=== PATIENT | female | born 1985 | race Caucasian/White ===

== ENCOUNTER 2016-10-09 16:24 | Outpatient (CLI) | payer MEDICAID ==
[~2016-10-09] VITALS: Ht 152.4 cm; Wt 80.3 kg
[2016-10-09] MEDS ORDERED: BETAMET NA PHOS/AC(6 MG/ML) 5ML INJ IM ONE (16:45)
--- NOTE | 2016-10-09 18:27 | RADRPT ---
PROCEDURE: US OB biophysical profile. CLINICAL INDICATION: Contractions TECHNIQUE: Multiple sonographic images of the pelvis were obtained. The images were reviewed on a PACS workstation. COMPARISON: No prior studies are available for comparison. FINDINGS: Funneling is noted at the internal cervical os. The closed portion of the cervix measures 2.4 cm in length. There is a single viable intrauterine gestation. Cardiac activity is present with 166 beats per min kiana. There is a vertex presentation. The placenta is fundal. There is no evidence of placental abruption. There is a normal amount of amniotic fluid with an CHRISTIANO = 11.2 cm. Biophysical profile: movement 2/2 tone 2/2. breathing 2/2 CHRISTIANO 2/2 Total 01/12 RPTAT: AA . IMPRESSION: Normal biophysical profile. Funneling is noted at the internal cervical os with the closed portion of the cervix measuring 2.4 c m in length. Normal CHRISTIANO. Mildly elevated heart rate of 166 beats per minute. Cephalic presentation. Physician Mitul Date Time Electronically viewed and signed by Physician Mitul on 10/09/2016 18:26 RA/
[2016-10-09] MEDS ORDERED: NIFE10CA19 PO (19:54)
--- NOTE | 2016-10-09 20:26 | QN ---
Documentation Comment OB Triage- Laborist Pt is a 31yo at 30+6 presenting for 2nd dose of BMZ. Pt was seen at [facility] yesterday for contractions and received a dose of BMZ and was instructed to return here today to receive dose #2. Pt reports feeling minimal contractions , really only when fetus moves. Denies LOF or VB and reports normal FM. The patient was discussed with Dr. Ireland by criminal legal assistant and TVCL ordered VS BP 121/66 P 96 FHR: baseline 130s, mod primitivo, +10x10 accels, no decels [place]: acontractile PROCEDURE: US OB biophysical profile. CLINICAL INDICATION: Contractions TECHNIQUE: Multiple sonographic images of the pelvis were obtained. The images were reviewed on a PACS workstation. COMPARISON: No prior studies are available for comparison. FINDINGS: Funneling is noted at the internal cervical os. The closed portion of the cervix measures 2.4 cm in length. There is a single viable intrauterine gestation. Cardiac activity is present with 166 beats per minute. There is a vertex presentation. The placenta is fundal. There is no evidence of placental abruption. There is a normal amount of amniotic fluid with an CHRISTIANO = 11.2 cm. Biophysical profile: movement 2/2 tone 2/2. breathing 2/2 CHRISTIANO 2/2 Total 01/12 RPTAT: AA . IMPRESSION: Normal biophysical profile. Funneling is noted at the internal cervical os with the closed portion of the cervix measuring 2.4 cm in length. Normal CHRISTIANO. Mildly elevated heart rate of 166 beats per minute. Cephalic presentation. Assessment/Plan Reactive NST TVCL <2.5cm, pt asymptomatic Results of U/S discussed with Dr. Ireland by criminal legal assistant and discharge was ordered with Rx for Nifedipine 10mg PO q6H which was given to the patient. The patient will f/up with Dr. Ireland on Friday 10/13. Strict PTL, PPROM and FKC instructions were reviewed with the patient. Questions were answered to the patient's satisfaction. FADI ENRIQUEZ MD October 09, 2016 20:26
--- NOTE | 2016-10-09 21:41 | TRIAGE ---
OB Triage Datetime Report Generated by CPN: 10/09/2016 21:41 Datetime: 10/09/2016 19:41 Stage of : OB Triage Labor Evaluation Frequency: X1 Monitor Mode: External Duration (sec)2399: 40 Quality: Mild Pattern: Normal: <= 5 Contractions in 10 Minutes Resting Tone [place]: Relaxed Heart Rate FHR Baseline Rate: 135 Monitor Mode: External US FHR Baseline Changes: No Baseline Change Variability: Moderate 6-25 bpm Accelerations: 15X15 Decelerations: None Category: Category I Datetime: 10/09/2016 18:26 Labor Evaluation Frequency: 0 Monitor Mode: External Contraction Comments: DENIES FEELING ANY UC'S Heart Rate FHR Baseline Rate: 145 Monitor Mode: External US FHR Baseline Changes: No Baseline Change Variability: Moderate 6-25 bpm Accelerations: 15X15 Decelerations: None Category: Category I Pain Assessment Pain Presence: None/Denies Datetime: 10/09/2016 17:09 Labor Evaluation Frequency: 0 Monitor Mode: External Heart Rate FHR Baseline Rate: 140 Monitor Mode: External US FHR Baseline Changes: No Baseline Change Variability: Moderate 6-25 bpm Accelerations: 15X15 Decelerations: None Category: Category I Pain Assessment Pain Presence: None/Denies Datetime: 10/09/2016 16:49 Assessment Type: Triage Datetime: 10/09/2016 16:45 Stage of : OB Triage Labor Evaluation Frequency: 0 Monitor Mode: External Heart Rate FHR Baseline Rate: 150 Monitor Mode: External US FHR Baseline Changes: No Baseline Change Variability: Moderate 6-25 bpm Accelerations: 15X15 Decelerations: None Category: Category I Pain Assessment Pain Presence: None/Denies Datetime: 10/09/2016 16:44 EGA: 30.6 Datetime: 10/09/2016 16:25 Time of Arrival: 10/09/2016 16:25 Arrived By: Ambulatory Arrived From: Office Chief Complaint: 2ND DOSE OF BETA Movement: Present Contractions: Denies/Absent Rupture of Membranes: Denies Vaginal Bleeding: None Vaginal Discharge: Denies Recent Sexual Intercouse: Denies Abdominal Trauma: Not Applicable Patient Complaints: None Time Provider Notified: 10/09/2016 17:20 Provider Notified: TAHMINA Initial Plan: JULIA DUNNE BPP
[2016-10-10] MEDS ORDERED: NIFEdipine 10 MG CAP PO SCH
== END 2016-10-09 20:15 | disposition home or self-care (01) ==
LOC: OBT 16:24 → L-D 16:25 → OBT 20:15
PROVIDERS: ATTEND Obstetrics & Gynecology
DX: O62.9 Abnormality of forces of labor, unspecified (principal); Z3A.30 30 weeks gestation of pregnancy
CPT/HCPCS: 76817; 76818; 96372; J0702; Z7500; G0463

== ENCOUNTER 2016-10-29 11:36 | Inpatient (IN) | payer MEDICAID ==
[~2016-10-29] VITALS: Ht 152.4 cm; Wt 81.5 kg
[~2016-10-29 11:36] MED LIST: NIFE10CA19 PO
[2016-10-29 12:04] VITALS: BP 111/62; PULSE 97; RESP 18; Ht 152.4 cm; Wt 81.5 kg
[2016-10-29] MEDS ORDERED: PEN500 PO (12:04)
[2016-10-29] MEDS ORDERED: PRENAT PO (12:04)
[2016-10-29] MEDS ORDERED: FERR325T5 PO (12:04)
[2016-10-29] MEDS ORDERED: CALC600T11 PO (12:04)
[2016-10-29] MEDS ORDERED: NIFEdipine 10 MG CAP PO ONE (13:00)
[2016-10-29] MEDS ORDERED: LACTATED RINGER'S 1,000 ML IV* SCH (13:00)
[2016-10-29] MEDS ORDERED: TERBUTALINE 1 MG/ML INJ SC ONE (13:00)
--- NOTE | 2016-10-29 13:57 | RADRPT ---
PROCEDURE: CERVICAL LENGTH ULTRASOUND CLINICAL INDICATION: labor at 33 weeks gestational age. TECHNIQUE: Trans-vaginal imaging of the cervical canal was performed utilizing flores-scale imaging. Sagittal and transverse images were obtained. Trans-abdominal images were also obtained. The rukhsana ges were reviewed on a PACS workstation. COMPARISON: None. FINDINGS: There is a single live intrauterine . heart rate is 144 beats per minute. Position is cephalic and placenta is fundal grade II. There is no placenta previa. The cervix is closed with a length of 1.7 cm. IMPRESSION: 1. Cervical length is 1.7 cm. RPTAT: QQ .Niles Cerrato MD, MD Date Time Electronically viewed and signed by .Niles Cerrato MD, on 10/29/2016 13:57 .R/
[2016-10-29] MEDS ORDERED: MAGNESIUM SULFATE 4 GM/100 ML 100 ML IV ONE (15:00)
[2016-10-29] MEDS ORDERED: ACETAMINOPHEN 325 MG TAB PO PRN (15:00)
[2016-10-29] MEDS ORDERED: ONDANSETRON 4 MG INJ IV PRN (15:00)
[2016-10-29] MEDS: BETAMET NA PHOS/AC(6 MG/ML) 5ML INJ IM SCH (15:05)
--- NOTE | 2016-10-29 15:18 | HP ---
Date/Time of Note Date/Time of Note DATE: 10/29/16 TIME: 15:13 OB - History Hx of Present Last Menstrual Period: Mar 07, 2016 Estimated Due Date: Dec 12, 2016 : 2 Para: 1 Care: Good Care Ultrasounds: Normal mid trimester US Obstetrical Complications: Other ( labor ) Medical Complications: None Past Family/Social History * Past Medical, Surgical, Family and Obstetric Histories reviewed from chart. Blood Type: O+ Rubella: immune RPR/VDRL: Negative GBS Status: Unknown HBsAG: Negative OB Admission Exam Vital Signs Vital Signs Vital Signs Date Time Temp Pulse Resp B/P Pulse Ox O2 Delivery O2 Flow Rate FiO2 10/29/16 12:04 98.5 97 18 111/62 98 Room Air Physical Exam HEENT: WNL Heart: Rhythm Normal Lungs: Clear, Equal Abdomen: WNL Extremities: Normal Reflexes: Normal Cervical Dilatation: 1cm Effacement: 50% Station: -3 Membranes: Intact Heart Rate: 140's Accelerations: Accelerations Present Decelerations: No Decelerations Varibility: Moderate Contractions on Admission: < 5 Minutes Apart Date/Time Contractions Began: 10/28/20161999 Frequency of Contractions: Q4-7 Duration: >60 seconds Intensity: Moderate OB Assessment/Plan Reason for admission: labor Other Assessment: 33.5 weeks gestation Other plan: start on magnesium sulfate KRISHNA KAUR MD October 29, 2016 15:18
[2016-10-29] MEDS: MAGNESIUM SULFATE 20 GM/500 ML 500 ML IV SCH (15:35)
[2016-10-29] MEDS: LACTATED RINGER'S 1,000 ML IV SCH ×2 (17:22→23:37)
[2016-10-29] MEDS: CALCIUM CARBONATE 1.25 GM TAB PO SCH (18:07)
[2016-10-29] MEDS: PENICILLIN V K 250 MG TAB PO SCH (18:12)
[2016-10-29] MEDS: ACCU-CHEK XX SCH (20:05)
[2016-10-30] MEDS: PENICILLIN V K 250 MG TAB PO SCH ×4 (00:02→17:51)
[2016-10-30] MEDS: MAGNESIUM SULFATE 20 GM/500 ML 500 ML IV SCH ×3 (01:07→21:15)
[2016-10-30] MEDS: ACCU-CHEK XX SCH ×3 (08:01→14:01)
[2016-10-30] MEDS: MULTIVIT/MIN/FOLATE/IRON/PREN TAB PO SCH (08:53)
[2016-10-30] MEDS: CALCIUM CARBONATE 1.25 GM TAB PO SCH (08:54)
[2016-10-30] MEDS: FERROUS SULFATE (EC) 325 MG TAB PO SCH (08:54)
[2016-10-30] MEDS: LACTATED RINGER'S 1,000 ML IV SCH (12:17)
[2016-10-30] MEDS: BETAMET NA PHOS/AC(6 MG/ML) 5ML INJ IM SCH (14:50)
--- NOTE | 2016-10-30 17:22 | QN ---
Documentation Comment Progress Note: 31 y.o. A1 with an IUP at 33w 6d admitted with labor and a short cervix. The pt's cervix was 1.7cm 10/29. On 10/09 the cervix was 2.4 cm with funneling. She received her 1st steroid dose and will receive the next tonight. She is currently on magnesium.Pt had been on Procardia at home but lost the Rx and then started yris 10/28 PM so she came in. POBHx: C/S at 35 weeks for PTL- the baby went home with mom. PMHx: GDM- diet controlled. PSx: C/S only. All: latex. P: Pt is stable and in good spirits. A few contractions now. Will request a perinatology consult to develop a plan of care. Cont Magnesium for now. BRIT BURCIAGA MD October 30, 2016 17:22
[2016-10-31] MEDS: PENICILLIN V K 250 MG TAB PO SCH ×4 (00:02→18:43)
[2016-10-31] MEDS: LACTATED RINGER'S 1,000 ML IV SCH ×2 (01:01→13:51)
[2016-10-31] MEDS: MAGNESIUM SULFATE 20 GM/500 ML 500 ML IV SCH (06:15)
[2016-10-31] MEDS: ACCU-CHEK XX SCH ×4 (08:39→19:53)
[2016-10-31] MEDS: FERROUS SULFATE (EC) 325 MG TAB PO SCH (09:46)
[2016-10-31] MEDS: CALCIUM CARBONATE 1.25 GM TAB PO SCH (09:46)
[2016-10-31] MEDS: MULTIVIT/MIN/FOLATE/IRON/PREN TAB PO SCH (09:47)
[2016-10-31] MEDS ORDERED: NIFEdipine 10 MG CAP PO ONE (18:00)
--- NOTE | 2016-11-01 00:04 | QN ---
Documentation Comment Progress note 31 y.o. with an IUP at 33w 6d with PTL and a short cervix of 1.3 cm. Now s/p steroids x 2. On magnesium. Dr Parker saw the pt today and recommended the magnesium be stopped at 1800 and changed over to Procardia. Pt is not having any UC's and is feeling fine. BS's 125-143 which is fine as she received steroids. P: Continue care. BRIT BURCIAGA MD November 01, 2016 00:04
[2016-11-01] MEDS: NIFEdipine 10 MG CAP PO SCH ×4 (00:05→17:36)
[2016-11-01] MEDS: PENICILLIN V K 250 MG TAB PO SCH ×4 (00:08→17:36)
[2016-11-01] MEDS: LACTATED RINGER'S 1,000 ML IV SCH (02:27)
[2016-11-01] MEDS: ACCU-CHEK XX SCH ×3 (07:30→14:29)
[2016-11-01] MEDS: MULTIVIT/MIN/FOLATE/IRON/PREN TAB PO SCH (09:01)
[2016-11-01] MEDS: CALCIUM CARBONATE 1.25 GM TAB PO SCH (09:01)
[2016-11-01] MEDS: FERROUS SULFATE (EC) 325 MG TAB PO SCH (09:01)
--- NOTE | 2016-11-01 17:23 | DS ---
DATE OF ADMISSION: 10/29/2016 DATE OF DISCHARGE: DISCHARGE DIAGNOSES: 1. Intrauterine at 1/7 weeks. 2. labor, resolved. HISTORY AND HOSPITAL COURSE: The patient is a 31-year-old who presented at 33-1/2 weeks with contra ctions and short cervix. The patient was admitted, started on magnesium, betamethasone course. The patient was seen by the M and on the day of discharge, the patient is doing well. No uterine con tractions, leakage of fluid, good movement. On discharge, patient at 34 weeks and 1 day. Ex am within normal limits. Vital signs within normal limits. Patient discharged home in stable condition. ER precautions were given and patient is stable upon d ischarge. Patient sent home on nifedipine 20 q.6. The patient to follow up with Dr. Ireland in the next 2 to 3 days. Dictated By: DEBORAH AMIN MD /NTS Conf#: [id number] DID#: [id number]
== END 2016-11-01 18:03 | disposition home or self-care (01) | DRG 778 ==
LOC: L-D 11:36 → OBT 11:36 → L-D 14:48 → OBG 15:47
PROVIDERS: ADMIT Obstetrics & Gynecology; ATTEND Obstetrics & Gynecology
DX: O60.03 Preterm labor without delivery, third trimester (principal); O26.873 Cervical shortening, third trimester; Z3A.33 33 weeks gestation of pregnancy
CPT/HCPCS: 36415; 76817; 82962; 83735; 96372; G0463; J0702; J3105; J3475; J7120

== ENCOUNTER 2016-11-24 10:53 | Inpatient (IN) | payer MEDICAID ==
[~2016-11-24] VITALS: Ht 152.4 cm; Wt 85.8 kg
[2016-11-24] MEDS: LACTATED RINGER'S 1,000 ML IV SCH ×4 (10:15→22:11)
[~2016-11-24 10:53] MED LIST changes: +CALC600T11 PO; +FERR325T5 PO; -NIFE10CA19 PO; +PRENAT PO
[2016-11-24] MEDS ORDERED: PRO20 PO (12:00)
[2016-11-24 12:01] VITALS: BP 116/67; PULSE 90; RESP 18; Ht 152.4 cm; Wt 85.8 kg
[2016-11-24] MEDS ORDERED: OXYTOCIN 30 UNITS/LR 500 ML IV PRN ×2 (13:00→22:00)
[2016-11-24] MEDS ORDERED: OXYTOCIN 30 UNITS/LR 500 ML IV SCH (13:00)
[2016-11-24] MEDS ORDERED: METHYLERGONOVINE 0.2 MG INJ IM PRN ×2 (13:00→22:00)
[2016-11-24] MEDS ORDERED: MISOPROSTOL 200 MCG TAB PR PRN ×2 (13:00→22:00)
[2016-11-24] MEDS ORDERED: CARBOPROST 250 MCG INJ IM PRN ×2 (13:00→22:00)
[2016-11-24 13:10] LABS: ADD SCAN DIFF NO
[2016-11-24 13:11] LABS: BASOPHILS % 0.2 % (0.0-2.0); EOSINOPHILS # 0.1 10^3/ul (0.0-0.5); EOSINOPHILS % 0.7 % (0.0-7.0); HEMATOCRIT 32.6 % (37.0-47.0); HEMOGLOBIN 11.2 g/dl (12.0-16.0); LYMPHOCYTES # 2.1 10^3/ul (0.8-2.9); LYMPHOCYTES % 17.6 % (15.0-51.0); MEAN CORPUSCULAR HEMOGLOBIN 31.8 pg (29.0-33.0); MEAN CORPUSCULAR HGB CONC 34.4 g/dl (32.0-37.0); MEAN CORPUSCULAR VOLUME 92.6 fl (82.0-101.0); MEAN PLATELET VOLUME 12.4 fl (7.4-10.4); MONOCYTE # 0.9 10^3/ul (0.3-0.9); MONOCYTES % 7.4 % (0.0-11.0); NEUTROPHIL # 8.8 10^3/ul (1.6-7.5); NEUTROPHILS % 73.5 % (39.0-77.0); PLATELET COUNT 220 10^3/UL (140-415); RED BLOOD COUNT 3.52 10^6/ul (4.20-5.40); RED CELL DISTRIBUTION WIDTH 13.6 % (11.5-14.5)
[2016-11-24 13:16] LABS: INR 0.91; PROTIME 12.3 Sec (12.2-14.2)
[2016-11-24 13:17] LABS: PARTIAL THROMBOPLASTIN TIME 28.1 Sec (25.0-35.0)
--- NOTE | 2016-11-24 13:28 | NSTRPT ---
NST Information Datetime Report Generated by CPN: 11/24/2016 13:28 Datetime: 11/24/2016 08:34 NST Information EGA: 37.3 Test Number: 7 Time on Monitor: 11/24/2016 08:55 Time off Monitor: 11/24/2016 09:48 NST Duration (Min): 53 Reason for NST: Diabetes Mellitus; Low JESUS; Other Reason for NST Other: A1DM, Marginal Cord Insertion Test and Monitor Explained: Monitor Explained; Test Explained; Verbalized Understanding Pulse: 91 Resp: 18 SBP: 121 DBP: 79 Test Evaluation NST Interventions: Reposition Patient Patient States Movement: Present Contraction Frequency: 6-8, PT STATES MILD FHR Baseline : 155 Variability: Moderate 6-25bpm Accelerations: 15X15 Decelerations: Early; Variable FHR Category: Category II NST Results: Reactive Comments: To u/s CHRISTIANO 8.0 CM, CEPH, STRIP REVIEWED BY DR FIELDS, RECOMMENDING PT GO TO OB TRIAGE FOR EXTENDED MONITORING AND LABOR EVALUATION. 1020-Report to Dr Ireland, inc Dr Fields's recommendations, orders received. Report called to SCARLET Marquez, Triage. POC discussed with Pt, states understanding. 1045-Pt to triage, accomp by Shayla u/genet. Electronically Signed By E-Signature: with User ID: [id number], Addendum/Amendment: Patient with regular uterine contractions, some suspicious areas after contract ions, not repetitive. Recommend prolonged monitoring, possible delivery if decelerations persist or labor progresses Datetime: 11/17/2016 08:45 NST Information EGA: 36.3 NST Duration (Min): 32 Datetime: 11/13/2016 08:58 NST Information EGA: 35.6 NST Duration (Min): 31 Datetime: 11/10/2016 08:34 NST Information EGA: 35.3 NST Duration (Min): 37 Datetime: 11/06/2016 11:01 NST Information EGA: 34.6 NST Duration (Min): 43 Datetime: 11/04/2016 13:25 NST Information EGA: 34.4 NST Duration (Min): 30
[2016-11-24] MEDS ORDERED: PHENYLephrine (100 MCG/ML) 5ML SYG ONE (17:38)
[2016-11-24] MEDS ORDERED: morphine SULFATE/PF (10 MG/10 ML) INJ ONE (17:38)
[2016-11-24] MEDS ORDERED: OXYTOCIN 10 UNIT INJ ONE (17:38)
[2016-11-24] MEDS: CEFAZOLIN 2 GM/50 ML (PMX) 50 ML IV SCH ×2 (17:40→18:17)
[2016-11-24] MEDS ORDERED: KETOROLAC 30 MG INJ ONE (17:49)
[2016-11-24] MEDS ORDERED: METOCLOPRAMIDE 10 MG INJ ONE (17:49)
[2016-11-24] MEDS ORDERED: DEXAMETHASONE 4 MG/ML 1 ML INJ ONE (17:49)
[2016-11-24] MEDS ORDERED: ONDANSETRON 4 MG INJ ONE (17:49)
[2016-11-24] MEDS ORDERED: CITRIC ACID/SODIUM CITRATE 15 ML CUP ONE (18:12)
[2016-11-24] MEDS ORDERED: CITRIC ACID/SODIUM CITRATE 15 ML CUP PO ONE (18:15)
[2016-11-24] MEDS ORDERED: morphine 2 MG INJ IV PRN (18:30)
[2016-11-24] MEDS ORDERED: HYDROmorphONE 1 MG/ML SYG IV PRN ×2 (18:30)
[2016-11-24] MEDS ORDERED: KETOROLAC 30 MG INJ IV PRN (18:30)
[2016-11-24] MEDS ORDERED: DIPHENHYDRAMINE 50 MG INJ IV PRN (18:30)
[2016-11-24] MEDS ORDERED: NALOXONE (0.4 MG/ML) INJ IV PRN (18:30)
[2016-11-24] MEDS ORDERED: NALBUPHINE HCL (10 MG/1 ML) INJ IV PRN (18:30)
[2016-11-24] MEDS ORDERED: ACETAMINOPHEN 500 MG TAB PO PRN (18:30)
[2016-11-24] MEDS ORDERED: ONDANSETRON 4 MG INJ IV PRN (18:30)
[2016-11-24] MEDS ORDERED: HYDROCODONE/APAP (5/325) TAB PO PRN (18:30)
[2016-11-24] MEDS ORDERED: morphine 4 MG/ML VIAL IV PRN (18:30)
--- NOTE | 2016-11-24 19:30 | HP ---
Date/Time of Note Date/Time of Note DATE: 11/24/16 TIME: 19:24 OB - History Hx of Present Free Text/Dictation C/O onset of uterine contractions started AM of the admission was seen in NST noticed to have U/C q 5-10 min Chief Complaint: labor contractions Last Menstrual Period: Mar 07, 2016 Estimated Due Date: Dec 12, 2016 : 2 Para: 1 Care: Good Care Ultrasounds: Normal mid trimester US, Abnormal US findings (marginal cord insersion ) Obstetrical Complications: Gestational Diabetes Medical Complications: Other (previous C/S X 1 ) Past Family/Social History * Past Medical, Surgical, Family and Obstetric Histories reviewed from chart. Blood Type: A+ Rubella: immune RPR/VDRL: Negative GBS Status: Negative HBsAG: Negative OB Admission Exam Vital Signs Vital Signs Vital Signs Date Time Temp Pulse Resp B/P Pulse Ox O2 Delivery O2 Flow Rate FiO2 11/24/16 12:01 98.8 90 18 116/67 97 Room Air Physical Exam HEENT: WNL Heart: Rhythm Normal Lungs: Clear, Equal Abdomen: WNL Extremities: Normal Reflexes: Normal Cervical Dilatation: 2cm Effacement: 50% Station: -3 Membranes: Intact Heart Rate: 140's Accelerations: Accelerations Present Decelerations: No Decelerations Varibility: Moderate Contractions on Admission: < 5 Minutes Apart Date/Time Contractions Began: 0900AM 11/24/2016 Frequency of Contractions: q5 Duration: >60 seconds Intensity: Mild Last 72 hours Lab Results CBC & BMP 11/24/16 11:45 OB Assessment/Plan Reason for admission: section Other Assessment: 37 + weeks gestation previous C/S X 1 labor pains gestational DM Other plan: repeat C/S KRISHNA KAUR MD Nov 24, 2016 19:29
--- NOTE | 2016-11-24 19:32 | OPR ---
Operative Report Planned Procedure Procedure date Nov 24, 2016 Procedure(s) repeat C/S Performed by: KRISHNA KAUR MD Assisting provider: REMI DARDEN MD Anesthesiologist: TRISTA MONTENEGRO MD Pre-procedure diagnosis 37 + weeks gestation previous C/S X 1 labor pains Anesthesia Type: spinal Procedure Description Under satisfactory anaesthesia a Pfannenstiel incision was made two fingerbreadth above and parallel to the symphysis of pubis around the previous scar and previous scar was removed Incision was extended laterally to the border of the Recti muscles on either sides. Incision was carried down with sharp and blunt dissection until fascia was reached. Anterior Recti muscle fascia was incised in mid portion and incision extended laterally to the border of skin incision. Fascia was mobilized from muscle superiorly and Recti muscles were from midline using sharp and blunt dissection. Peritoneum was visualized; Avoiding bowel and bladder it was incised . Incision was extended superiorly and inferiorly. Bladder blade was placed. Posterior peritoneum covering the lower segment of the uterus and lower segment of the uterus were incised.Low transverse uterine incision was made on lower segment of the uterus. Incision extended laterally to the border of Round Lig. on either sides and baby was delivered from OT. position . Amniotic fluid appeared clear. Cord blood was obtained and cord had 3 vessels . Placenta was delivered spontaneously and appeared intact and complete. Intrauterine cavity was rubbed with a laparotomy sponge. Uterine incision was closed in 2 layers using running stitches of No1 Monocryl. Hemostasis appeared secure. Ovaries and Fallopian tubes were within normal limits. Announcing needle, lap sponge and instrument count to be correct abdomen was closed in layers as follows: Peritoneum and Recti muscles with running stitches of 20 Vicryl. Fascia with running stitch of No 1 PDS. Subcutaneous tissue with running stitches of 20 Chromic and skin was closed using cait. Patient tolerated the procedure well and was transferred to [facility] in good condition. Post-Procedure Post-procedure diagnosis S/P C/S Findings: Live Baby Specimen removed: No Complications: None Pt Condition post procedure: stable Disposition: PACU Physician Certification I, the undersigned physician, hereby certify that I have discussed the procedure described in this consent form with this patient (or the patient's legal ict sales representative), including: * The risk and benefits of the procedure; * Any adverse reactions that may reasonably be expected to occur; * Any alternative efficacious methods of treatment which may be medically viable ; * The potential problems that may occur during recuperation; * Potential for blood transfusion and associated risks/benefits; and * Any research or economic interest I may have regarding this treatment. I further certify that the patient/legally responsible person was encouraged to ask question and that all questions were answered. KRISHNA KAUR MD Nov 24, 2016 19:32
[2016-11-24 21:45] VITALS: BP 140/72; PULSE 82; RESP 18
[2016-11-24 22:00] VITALS: BP 138/71; PULSE 82; RESP 18
[2016-11-24] MEDS ORDERED: NA PHOSPHATE/BIPHOS 133 ML ENEMA PR PRN (22:00)
[2016-11-24] MEDS ORDERED: CEFAZOLIN 2 GM/50 ML (PMX) 50 ML IV SCH (22:00)
[2016-11-24] MEDS ORDERED: LANOLIN 7 GM TUBE TOP PRN (22:00)
[2016-11-25] VITALS: BP 122/60; PULSE 81; RESP 16
[2016-11-25] MEDS: CEFAZOLIN 2 GM/50 ML (PMX) 50 ML IVPB SCH ×3 (02:26→18:21)
[2016-11-25 03:30] VITALS: BP 127/78; PULSE 88; RESP 18
--- NOTE | 2016-11-25 05:17 | OPPN ---
Date/Time of Note Date/Time of Note DATE: 11/25/16 TIME: 05:16 Post-Anesthesia Notes Post-Anesthesia Note Last documented vital signs Vital Signs Date Time Temp Pulse Resp B/P Pulse Ox O2 Delivery O2 Flow Rate FiO2 11/25/16 03:30 98.0 88 18 127/78 Room Air 11/25/16 03:03 96 21 Activity: WNL Respiratory function: WNL Cardiovascular function: WNL Mental status: Baseline Pain reasonably controlled: Yes Hydration appropriate: Yes Nausea/Vomiting absent: Yes TRISTA MONTENEGRO MD Nov 25, 2016 05:17
[2016-11-25] MEDS: CLINDAMYCIN 300 MG CAP PO SCH ×4 (06:00→18:22)
[2016-11-25] MEDS: LACTATED RINGER'S 1,000 ML IV SCH ×3 (06:09→21:55)
[2016-11-25 07:39] LABS: ADD SCAN DIFF NO; BASOPHILS % 0.1 % (0.0-2.0); HEMATOCRIT 30.9 % (37.0-47.0); HEMOGLOBIN 10.2 g/dl (12.0-16.0); LYMPHOCYTES # 2.1 10^3/ul (0.8-2.9); LYMPHOCYTES % 11.2 % (15.0-51.0); MEAN CORPUSCULAR HEMOGLOBIN 30.9 pg (29.0-33.0); MEAN CORPUSCULAR VOLUME 93.6 fl (82.0-101.0); MEAN PLATELET VOLUME 11.5 fl (7.4-10.4); MONOCYTE # 1.2 10^3/ul (0.3-0.9); MONOCYTES % 6.3 % (0.0-11.0); NEUTROPHILS % 81.9 % (39.0-77.0); PLATELET COUNT 224 10^3/UL (140-415); RED CELL DISTRIBUTION WIDTH 13.5 % (11.5-14.5); WHITE BLOOD COUNT 18.3 10^3/ul (4.8-10.8)
[2016-11-25 08:00] VITALS: BP 140/77; PULSE 88; RESP 18
[2016-11-25] MEDS: SENNA/DOCUSATE NA (8.6MG/50MG) TAB PO SCH ×2 (09:40→20:52)
[2016-11-25] MEDS ORDERED: BISACODYL 10 MG SUPP PR ONE (10:00)
[2016-11-25 13:00] VITALS: BP 115/80; PULSE 82; RESP 18
[2016-11-25] MEDS: ACCU-CHEK XX SCH ×2 (13:50→20:05)
[2016-11-25 15:20] VITALS: BP 121/68; PULSE 80; RESP 18
--- NOTE | 2016-11-25 17:25 | PN ---
Date/Time of Note Date/Time of Note DATE: 11/25/16 TIME: 17:23 Assessment/Plan VTE Prophylaxis VTE Prophylaxis Intervention: ambulation Lines/Catheters IV Catheter Type (from Nrsg): Peripheral IV Assessment/Plan Assessment/Plan POD # 1 S/P C/S GDM: sugars are currently under control will advance diet and ambulate Subjective 24 Hr Interval Summary NO BM passing flatus Constitutional: BM, ambulates, flatus, improved, no complaints, urine output Pain Control: well controlled Exam/Review of Systems Vital Signs Vitals Vital Signs Date Time Temp Pulse Resp B/P Pulse Ox O2 Delivery O2 Flow Rate FiO2 11/25/16 15:20 98.1 80 18 121/68 Room Air 11/25/16 15:00 97 21 Intake and Output 11/24/16 11/24/16 11/25/16 15:00 23:00 07:00 Intake Total 125 ml 925 ml 1050 ml Output Total 200 ml 1350 ml 400 ml Balance -75 ml -425 ml 650 ml Exam Free Text/Dictation abdomen: soft bs + Incision: covered Constitutional: alert, oriented, well developed Psych: nl mood/affect, no complaints Head: atraumatic, normocephalic Eyes: EOMI, nl conjunctiva, nl lids, nl sclera ENMT: mucosa pink and moist, nl external ears & nose, nl lips & teeth, nl nasal mucosa & septum Neck: non-tender, supple Respiratory: clear to auscultation, normal air movement Cardiovascular: nl pulses, regular rate and rhythm Gastrointestinal: nl liver, spleen, non-tender, soft Drains None Musculoskeletal: nl extremities to inspection, nl gait and stance Extremities: normal pulses Neurological: 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
[2016-11-25] MEDS ORDERED: ACETAMINOPHEN/CODEINE #3 TAB PO PRN (17:32)
[2016-11-25] MEDS: OXYCODONE/ACETAMINOPHEN (5/325) TAB PO PRN (18:22)
[2016-11-25 21:00] VITALS: BP 116/60; PULSE 79; RESP 18
[2016-11-26] MEDS: IBUPROFEN 800 MG TAB PO SCH ×4 (00:03→22:00)
[2016-11-26] MEDS: CLINDAMYCIN 300 MG CAP PO SCH ×3 (00:03→12:40)
[2016-11-26 03:45] VITALS: BP 115/79; PULSE 70; RESP 18
[2016-11-26] MEDS: LACTATED RINGER'S 1,000 ML IV SCH ×3 (05:55→21:55)
[2016-11-26] MEDS: ACCU-CHEK XX SCH ×5 (07:30→20:05)
[2016-11-26 07:55] LABS: ADD SCAN DIFF NO
[2016-11-26 08:00] VITALS: BP 124/82; PULSE 70; RESP 18
[2016-11-26 08:08] LABS: BASOPHILS % 0.2 % (0.0-2.0); EOSINOPHILS # 0.1 10^3/ul (0.0-0.5); EOSINOPHILS % 0.7 % (0.0-7.0); HEMOGLOBIN 10.5 g/dl (12.0-16.0); LYMPHOCYTES # 3.1 10^3/ul (0.8-2.9); LYMPHOCYTES % 24.9 % (15.0-51.0); MEAN CORPUSCULAR HEMOGLOBIN 31.3 pg (29.0-33.0); MEAN CORPUSCULAR HGB CONC 32.8 g/dl (32.0-37.0); MEAN CORPUSCULAR VOLUME 95.2 fl (82.0-101.0); MEAN PLATELET VOLUME 11.4 fl (7.4-10.4); MONOCYTE # 0.9 10^3/ul (0.3-0.9); MONOCYTES % 7.1 % (0.0-11.0); NEUTROPHIL # 8.4 10^3/ul (1.6-7.5); NEUTROPHILS % 66.7 % (39.0-77.0); PLATELET COUNT 236 10^3/UL (140-415); RED BLOOD COUNT 3.36 10^6/ul (4.20-5.40); RED CELL DISTRIBUTION WIDTH 14.2 % (11.5-14.5); WHITE BLOOD COUNT 12.6 10^3/ul (4.8-10.8)
[2016-11-26] MEDS: SENNA/DOCUSATE NA (8.6MG/50MG) TAB PO SCH ×2 (09:14→20:54)
--- NOTE | 2016-11-26 09:32 | DS ---
Date/Time of Note Date/Time of Note home next day DATE: 11/26/16 TIME: 09:30 Obstetrical Discharge Record Final Diagnosis Final Diagnosis: Term delivered Other Final Diagnosis S/P C/S Section Section: Repeat Complications Gestational Diabetes Condition on Discharge Physical Assessment Last Vitals: see nurses notes Voiding: Yes Bowel Movement: Yes Breast: Soft, non-tender, Filling Fundus: Firm Abdomen and Incision: abdomen: soft bs + incision: healing well Episiotomy: NA Calf Tenderness: No Patient Condition: Good KRISHNA KAUR MD Nov 26, 2016 09:32
--- NOTE | 2016-11-26 09:33 | DS ---
Date/Time of Note Date/Time of Note DATE: 11/26/16 TIME: 09:32 Discharge Summary Admission/Discharge Info Admit Date/Time Nov 24, 2016 at 11:57 Discharge Date/Time 11/27/2016 Final Diagnosis S/P C/S Patient Condition: Good Procedures repeat C/S Hx of Present Illness 31 y/o female had repeat C/S Hospital Course uncomplicated Home Meds Reported Medications Nifedipine* (Procardia*) 20 Mg Cap, 20 MG PO Q6, CAP 11/24/16 Multivit/Min/Fol Ac/Iron/Pren* ( S*) 1 Tab Tab, 1 TAB PO DAILY, TAB 10/29/16 Discontinued Reported Medications Ferrous Sulfate (Ferrous Sulfate) 325 Mg Tablet.dr, 325 MG PO DAILY 10/29/16 Calcium Carbonate* (Calcium Carbonate*) 600 MG Ca Tab, 600 MG PO DAILY, TAB 10/29/16 Follow-up Plan 2-3 days in clinic for staple removal Primary Care Provider Care Physician No Primary Pending Labs Laboratory Tests Test 11/25/16 11:21 11/25/16 15:15 11/25/16 20:57 11/26/16 07:28 Bedside Glucose 119mg/dL (70-220) 108mg/dL (70-220) 106mg/dL (70-220) White Blood Count 12.610^3/ul (4.8-10.8) Red Blood Count 3.3610^6/ul (4.20-5.40) Hemoglobin 10.5g/dl (12.0-16.0) Hematocrit 32.0% (37.0-47.0) Mean Corpuscular Volume 95.2fl (82.0-101.0) Mean Corpuscular Hemoglobin 31.3pg (29.0-33.0) Mean Corpuscular Hemoglobin Concent 32.8g/dl (32.0-37.0) Red Cell Distribution Width 14.2% (11.5-14.5) Platelet Count 51908^3/UL (140-415) Mean Platelet Volume 11.4fl (7.4-10.4) Neutrophils % 66.7% (39.0-77.0) Lymphocytes % 24.9% (15.0-51.0) Monocytes % 7.1% (0.0-11.0) Eosinophils % 0.7% (0.0-7.0) Basophils % 0.2% (0.0-2.0) Nucleated Red Blood Cells % 0.0/100WBC (0.0-0.0) Neutrophils # 8.410^3/ul (1.6-7.5) Lymphocytes # 3.110^3/ul (0.8-2.9) Monocytes # 0.910^3/ul (0.3-0.9) Eosinophils # 0.110^3/ul (0.0-0.5) Basophils # 0.010^3/ul (0.0-0.1) Nucleated Red Blood Cells # 0.010^3/ul (0.0-0.0) KRISHNA KAUR MD Nov 26, 2016 09:33
--- NOTE | 2016-11-26 09:35 | PD.PPDC ---
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
[2016-11-26] MEDS ORDERED: IBUP800T25 PO (09:36)
[2016-11-26] MEDS ORDERED: Oxycodone/Acetamin (5/325) PO (09:36)
[2016-11-26] MEDS: OXYCODONE/ACETAMINOPHEN (5/325) TAB PO PRN (14:16)
[2016-11-26 16:00] VITALS: BP 131/83; PULSE 75; RESP 18
[2016-11-26 19:30] VITALS: BP 130/68; PULSE 84; RESP 20
[2016-11-27 04:00] VITALS: BP 113/61; PULSE 70; RESP 20
[2016-11-27] MEDS: LACTATED RINGER'S 1,000 ML IV SCH (05:55)
[2016-11-27] MEDS: CLINDAMYCIN 300 MG CAP PO SCH ×3 (06:00→11:28)
[2016-11-27] MEDS: IBUPROFEN 800 MG TAB PO SCH (06:00)
[2016-11-27 07:30] VITALS: BP 140/48; PULSE 69; RESP 18
[2016-11-27] MEDS ORDERED: MEASLES,MUMPS,RUBELLA VACCINE INJ SC* ONE (09:00)
[2016-11-27] MEDS ORDERED: DIPHTH/TET/ACEL PERTUSS (ADULT) 0.5 ML VIAL IM* ONE (09:00)
[2016-11-27] MEDS: SENNA/DOCUSATE NA (8.6MG/50MG) TAB PO SCH (09:06)
== END 2016-11-27 16:10 | disposition home or self-care (01) | DRG 766 ==
LOC: L-D 10:53 → OBT 10:53 → L-D 11:57 → OBT 11:57 → L-D 17:33 → PP1 21:36
PROVIDERS: ADMIT Obstetrics & Gynecology; ATTEND Obstetrics & Gynecology
PROC: 10D00Z1 Extraction of Products of Conception, Low, Open Approach (ICD-10-PCS; principal; 2016-11-24)
DX: O34.211 Maternal care for low transverse scar from previous cesarean delivery (principal); O24.429 Gestational diabetes mellitus in childbirth, unspecified control; Z3A.37 37 weeks gestation of pregnancy; Z37.0 Single live birth
CPT/HCPCS: 36415; 82962; 85025; 85610; 85730; 86592; 86850; 86900; 86901; 90715; 94760; 99464; G0463; J0690; J1100; J1200; J1885; J2274; J2370; J2405; J2590; J2765; J7120